=== PATIENT | female | born 1960 ===

== ENCOUNTER 2017-07-09 07:44 | Outpatient (CLI) | payer OTHER ==
[2017-07-10] MEDS ORDERED: CALCIUM500 M1 PO (13:59)
== END 2017-07-09 08:17 | disposition home or self-care (01) ==
LOC: LAB 07:44
DX: D68.9 Coagulation defect, unspecified (principal); E78.2 Mixed hyperlipidemia; N39.0 Urinary tract infection, site not specified

== ENCOUNTER 2017-07-09 08:00 | Outpatient (CLI) | payer OTHER ==
[2017-07-10] MEDS ORDERED: CALCIUM500 M1 PO (13:59)
== END 2017-07-09 08:17 | disposition home or self-care (01) ==
LOC: RAD 08:00
DX: R07.9 Chest pain, unspecified (principal)

== ENCOUNTER → 2017-07-09 | Outpatient (CLI) | payer OTHER ==
[~2017-07-09] MED LIST: CALCIUM500 M1 PO
== END | disposition home or self-care (01) ==
LOC: EKG 07:57
DX: I10 Essential (primary) hypertension (principal)